=== PATIENT | male | born 1965 ===

== ENCOUNTER 2017-12-24 08:51 | Day surgery (SDC) | payer MEDICARE ==
[~2017-12-24 08:51] MED LIST: Acetaminophen-Codeine 300/30 mg Tab PO PRN; Dextrose 5%/0.45% NS 1,000 ML IV SCH
[2017-12-24] MEDS ORDERED: Succinylcholine Chloride 20 mg/ml Syr (5 ml) IV ONE (10:25)
[2017-12-24] MEDS ORDERED: Propofol 10 mg/ml Inj (20 ML) ONE ×2 (10:25→11:08)
[2017-12-24] MEDS ORDERED: Lactated Ringer's 1,000 ML IV ONE (10:45)
[2017-12-24] MEDS ORDERED: ceFAZolin IV 1 gm in Dextrose 1 GM/50 ML BAG IVPB ONE (10:52)
[2017-12-24 12:04] VITALS: RESP 11
[2017-12-24 12:37] VITALS: BP 118/78; PULSE 83; TEMP 98
[2017-12-24 12:38] VITALS: O2SAT 100
--- NOTE | 2017-12-24 13:08 | OP ---
PROCEDURE DATE: 12/24/2017. PREOPERATIVE DIAGNOSIS: Left vocal cord lesion. POSTOPERATIVE DIAGNOSIS: Left vocal cord lesion. PROCEDURE: Micro-direct laryngoscopy with removal of left vocal cord lesion with biopsy. DESCRIPTION OF PROCEDURE: The patient was brought into the room, placed in a supine position. Anesthesia was initiated through an ET tube. Shoulder roll was placed, neck extended. The patient was draped in the usual manner. Tooth guard was placed over the upper teeth in order to protect them. A direct laryngoscope was inserted into the oral cavity, passed to the oropharynx and hypopharynx. The base of tongue, vallecula, epiglottis, AE folds, false cords, true cords, pyriform sinuses, and the pharyngeal dixon were brought into view. A lesion was noted on the left posterior vocal cord. The direct laryngoscope was suspended on the [employer] usual manner. Microscope was brought into place and used to view the left vocal cord lesion. Biopsies were taken. Bleeding was controlled with time. Direct laryngoscope was taken off suspension and removed. The microscope was taken off position. The patient was taken off anesthesia and taken to recovery room in stable manner. Minh Alberto MD
== END 2017-12-24 13:07 | disposition home or self-care (01) ==
LOC: C.SDS 08:51
PROVIDERS: ATTEND Otolaryngology
DX: J38.1 Polyp of vocal cord and larynx (principal); R13.14 Dysphagia, pharyngoesophageal phase; R49.0 Dysphonia; J39.2 Other diseases of pharynx
CPT/HCPCS: 31540; 82948; 88305; J0690; J2001; J2704; J3010; J7040; J7120